=== PATIENT | male | born 1950 | race African-American/Black ===

== ENCOUNTER 2016-07-30 09:01 | Emergency (ER) | payer MEDICARE, OTHER ==
[~2016-07-30] VITALS: Ht 175.3 cm; Wt 82.0 kg
[2016-07-30] MEDS ORDERED: DONE5TAB33 PO (09:11)
[2016-07-30 09:19] VITALS: BP 127/95
[2016-07-30] MEDS ORDERED: DEXAMETHASONE 10MG/ML 1ML VIAL IM ONE (09:30)
[2016-07-30] MEDS ORDERED: FAMOTIDINE 20MG TABLET PO ONE (09:30)
[2016-07-30] MEDS ORDERED: DIPHENHYDRAMINE 25MG CAPSULE PO ONE (09:30)
== END 2016-07-30 13:49 | disposition home or self-care (01) ==
LOC: ER 09:03
DX: T78.3XXA Angioneurotic edema, initial encounter (principal); I10 Essential (primary) hypertension
CPT/HCPCS: 96372; 99283; J1100; Q0163

== ENCOUNTER → 2017-07-17 | Outpatient (CLI) | payer MEDICARE, OTHER ==
[~2017-07-17] MED LIST: DONE5TAB33 PO
== END | disposition home or self-care (01) ==
LOC: CARD 08:46
PROVIDERS: ATTEND Psychiatry & Neurology Neurology
DX: G30.1 Alzheimer's disease with late onset (principal); F02.80 Dementia in other diseases classified elsewhere, unspecified severity, without behavioral disturbance, psychotic disturbance, mood disturbance, and anxiety

== ENCOUNTER 2018-07-27 12:06 | Inpatient (IN) | payer BC, OTHER, MEDICARE ==
[~2018-07-27] VITALS: Ht 177.8 cm; Wt 70.8 kg
[2018-07-27 12:54] VITALS: BP 131/62
[2018-07-27 16:00] VITALS: BP 119/74
[2018-07-27 17:49] LABS: HEMATOCRIT 44.9 % (42.0-52.0); HEMOGLOBIN 15.2 g/dL (14.0-18.0); MEAN CORPUSCULAR HEMOGLOBIN 30.8 pg (28.0-32.0); MEAN CORPUSCULAR VOLUME 90.7 fL (80.0-94.0); PLATELET 140 x1000/uL (130-400); RED BLOOD CELL COUNT 4.95 mill/uL (4.7-6.1); RED CELL DISTRIBUTION WIDTH 12.9 % (11.6-14.6)
[2018-07-27 17:57] LABS: CHLORIDE 104 mEq/L (98-107)
[2018-07-27 18:05] LABS: C REACTIVE PROTEIN CARDIAC 0.35 mg/L (0.00-3.00)
[2018-07-27 18:07] LABS: T4 FREE 0.88 ng/dL (0.76-1.46)
[2018-07-27 18:12] LABS: PROSTRATE SPECIFIC AG TOTAL 12.18 ng/mL (0.0-4.0); TRIOIODOTHYRONINE TOTAL 0.86 ng/ml (0.60-1.81)
[2018-07-27 20:00] VITALS: BP 133/79
[2018-07-27] MEDS ORDERED: DONEPEZIL HCL 5MG TABLET PO SCH (21:00)
[2018-07-28] VITALS: BP_SYST 106; BP_DIAS 68; BP_DIAS 72
[2018-07-28 04:00] VITALS: BP 143/87
[2018-07-28 08:00] VITALS: BP 118/65
[2018-07-28 12:00] VITALS: BP 110/73
[2018-07-28] MEDS ORDERED: ONDANSETRON HCL 4MG/2ML INJ IV PRN (13:45)
[2018-07-28] MEDS ORDERED: ACETAMINOPHEN 325MG TABLET PO PRN (13:45)
[2018-07-28] MEDS ORDERED: CLONIDINE 0.1MG TABLET PO PRN (13:45)
[2018-07-28] MEDS ORDERED: DOCUSATE SODIUM 100MG CAPSULE PO PRN (13:45)
[2018-07-28 16:00] VITALS: BP 111/70
[2018-07-28] MEDS: ENOXAPARIN 40MG/0.4ML SYR SUBCUT SCH (17:11)
[2018-07-28 20:00] VITALS: BP 123/79
[2018-07-29] VITALS: BP 106/68
[2018-07-29 04:00] VITALS: BP 124/79
[2018-07-29 06:35] LABS: BASOPHILS % 1.2 % (0.0-2.0); EOSINOPHILS % 9.8 % (0.0-5.0); HEMATOCRIT. 41.2 % (42.0-52.0); HEMOGLOBIN. 13.9 g/dL (14.0-18.0); LYMPHOCYTES % 33.6 % (20.0-50.0); MEAN CORPUSCULAR HEMOGLOBIN 30.7 pg (28.0-32.0); MEAN PLATELET VOLUME 10.3 fl (7.4-10.4); MONOCYTES % 10.8 % (2.0-8.0); NEUTROPHILS % 44.6 % (40.0-76.0); PLATELET 109 x1000/uL (130-400); RED BLOOD CELL COUNT 4.52 mill/uL (4.7-6.1); RED CELL DISTRIBUTION WIDTH 12.7 % (11.6-14.6)
[2018-07-29 06:36] LABS: CHLORIDE 107 mEq/L (98-107)
[2018-07-29 08:00] VITALS: BP 128/72
[2018-07-29 12:00] VITALS: BP 112/71
[2018-07-29] MEDS: ENOXAPARIN 40MG/0.4ML SYR SUBCUT SCH (14:15)
[2018-07-29 16:00] VITALS: BP 117/61
[2018-07-29] MEDS: MEMANTINE HCL 5MG TABLET PO SCH (18:14)
[2018-07-29 20:00] VITALS: BP 113/64
[2018-07-29] MEDS: RISPERIDONE 0.5MG TABLET PO SCH (21:26)
[2018-07-30] VITALS (7 sets, daily range): BP systolic 107–153; BP diastolic 61–80
[2018-07-30 07:26] LABS: EOSINOPHILS % 8.4 % (0.0-5.0); HEMATOCRIT. 40.2 % (42.0-52.0); HEMOGLOBIN. 13.7 g/dL (14.0-18.0); LYMPHOCYTES % 31.1 % (20.0-50.0); MEAN CORPUSCULAR HEMOGLOBIN 30.8 pg (28.0-32.0); MEAN CORPUSCULAR VOLUME 90.4 fL (80.0-94.0); MEAN PLATELET VOLUME 10.4 fl (7.4-10.4); MONOCYTES % 13.3 % (2.0-8.0); NEUTROPHILS % 46.2 % (40.0-76.0); PLATELET 118 x1000/uL (130-400); RED BLOOD CELL COUNT 4.45 mill/uL (4.7-6.1); RED CELL DISTRIBUTION WIDTH 12.8 % (11.6-14.6)
[2018-07-30 07:52] LABS: CHLORIDE 107 mEq/L (98-107)
[2018-07-30] MEDS: MEMANTINE HCL 5MG TABLET PO SCH (08:09)
[2018-07-30] MEDS: RISPERIDONE 0.5MG TABLET PO SCH (08:09)
[2018-07-30 08:14] LABS: CLARITY URINE CLOUDY (CLEAR); COLOR URINE YELLOW (YELLOW); KETONES URINE NEGATIVE (NEGATIVE); LEUKOCYTE ESTERASE URINE 3+ (NEGATIVE); NITRITE URINE NEGATIVE (NEGATIVE); OCCULT BLOOD URINE NEGATIVE (NEGATIVE); PROTEIN URINE NEGATIVE (NEGATIVE); SPECIFIC GRAVITY URINE 1.008 (1.005-1.030); UROBILINOGEN URINE 0.2 E.U./dL (0.2-1.0)
[2018-07-30] MEDS: ENOXAPARIN 40MG/0.4ML SYR SUBCUT SCH (14:18)
== END 2018-07-30 21:00 | DRG 57 ==
LOC: 6EST 12:06
PROVIDERS: ADMIT Internal Medicine Nephrology; ATTEND Internal Medicine Nephrology
DX: G30.1 Alzheimer's disease with late onset (principal); D61.818 Other pancytopenia; F02.81 Dementia in other diseases classified elsewhere, unspecified severity, with behavioral disturbance; C61 Malignant neoplasm of prostate; R62.7 Adult failure to thrive; Z91.83 Wandering in diseases classified elsewhere; Z68.22 Body mass index [BMI] 22.0-22.9, adult
CPT/HCPCS: 36415; 71045; 80048; 82378; 83735; 84153; 84439; 84443; 84480; 85027; 86141; 92610; 93005; 93880; 97162; J1650; G0103

== ENCOUNTER 2018-08-03 05:05 | Emergency (ER) | payer MEDICARE, OTHER ==
[~2018-08-03] VITALS: Ht 175.3 cm; Wt 68.0 kg
[2018-08-03 07:15] LABS: CLARITY URINE CLEAR (CLEAR); COLOR URINE YELLOW (YELLOW); KETONES URINE NEGATIVE (NEGATIVE); LEUKOCYTE ESTERASE URINE NEGATIVE (NEGATIVE); NITRITE URINE NEGATIVE (NEGATIVE); OCCULT BLOOD URINE NEGATIVE (NEGATIVE); PROTEIN URINE NEGATIVE (NEGATIVE); SPECIFIC GRAVITY URINE 1.014 (1.005-1.030); UROBILINOGEN URINE 0.2 E.U./dL (0.2-1.0)
[2018-08-03 09:31] VITALS: BP 108/66
== END 2018-08-03 10:04 | disposition home or self-care (01) ==
LOC: ER 05:05
DX: G30.8 Other Alzheimer's disease (principal); I10 Essential (primary) hypertension; F20.9 Schizophrenia, unspecified; E16.2 Hypoglycemia, unspecified; Z79.899 Other long term (current) drug therapy
CPT/HCPCS: 82962; 99283